=== PATIENT | male | born 1955 | race Caucasian/White ===

== ENCOUNTER 2016-07-17 01:53 | Emergency (ER) | payer OTHER ==
[~2016-07-17] VITALS: Ht 157.5 cm; Wt 62.6 kg
[2016-07-17] MEDS ORDERED: NF-SILD25T (02:01)
[2016-07-17] MEDS ORDERED: NS IV 1000 ML 1,000 ML IV ONE (02:04)
[2016-07-17 02:11] LABS: MEAN PLATELET VOLUME 9.2 FL (7.4-10.4); RED BLOOD COUNT 4.03 10^6/uL (4.35-5.85); RED CELL DISTRIBUTION WIDTH 12.4 % (10.0-14.5); WHITE BLOOD COUNT 16.1 10^3/uL (4.3-11.0)
[2016-07-17] MEDS ORDERED: CLINDAMYCIN 900 MG/50 ML IVPB 50 ML IV ONE (02:15)
[2016-07-17] MEDS ORDERED: TETANUS,DIPTH,PERTUSS P/F (BOOSTRIX) 0.5 ML VIAL IM ONE (02:15)
[2016-07-17 02:26] LABS: ALANINE AMINOTRANSFERASE 13 U/L (0-55); ALBUMIN 3.7 G/DL (3.2-4.5); ALCOHOL < 10 MG/DL (<10); ANION GAP 8 MMOL/L (5-14); ASPARTATE AMINO TRANSFERASE 15 U/L (5-34); BILIRUBIN,DIRECT 0.2 MG/DL (0.0-0.3); BILIRUBIN,INDIRECT 0.2 MG/DL; BILIRUBIN,TOTAL 0.4 MG/DL (0.1-1.0); BLOOD UREA NITROGEN 11 MG/DL (7-18); BUN/CREATININE RATIO 14; CALCIUM 7.8 MG/DL (8.5-10.1); CARBON DIOXIDE 23 MMOL/L (21-32); CHLORIDE 109 MMOL/L (98-107); CREATINE KINASE 144 U/L (30-200); CREATININE SERUM 0.78 MG/DL (0.60-1.30); GFR ESTIMATED > 60; GLUCOSE 128 MG/DL (70-105); POTASSIUM 3.8 MMOL/L (3.6-5.0); SODIUM 140 MMOL/L (135-145); TOTAL PROTEIN 5.7 G/DL (6.4-8.2)
[2016-07-17 03:03] LABS: BILIRUBIN,URINE NEGATIVE (NEGATIVE); KETONES,URINE 2+ (NEGATIVE); LEUKOCYTE ESTERASE ,URINE NEGATIVE (NEGATIVE); NITRITE,URINE NEGATIVE (NEGATIVE); PH,URINE 7 (5-9); PROTEIN,URINE NEGATIVE (NEGATIVE); UROBILINOGEN,URINE NORMAL (NORMAL)
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
[2016-07-17 03:18] LABS: SQUAMOUS EPITHELIAL CELL,UR RARE /HPF
[2016-07-17] MEDS ORDERED: LIDOCAINE/EPI 1%-1:100,000 (XYLOCAINE) 20ML ONE (03:35)
[2016-07-17] MEDS ORDERED: LIDOCAINE/EPI 1%-1:100,000 (XYLOCAINE) 20ML INJ ONE (03:45)
[2016-07-17 04:15] VITALS: BP 119/64
[2016-07-17] MEDS ORDERED: IOHEXOL 350 MG/ML 100 ML (OMNIPAQUE 350) VIAL IV ONE (04:15)
[2016-07-17] MEDS ORDERED: NS 100 ML (IVPB) BAG IV ONE (04:15)
[2016-07-17] MEDS ORDERED: TETRACAINE 0.5% OPHTH SOLN 4 ML BTL (SINGLE DOSE ONLY) OP ONE (04:30)
[2016-07-17 05:14] VITALS: BP 130/71
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
--- OUTSIDE RECORDS SUMMARY | 2016-08-09 11:36 | XMS REPORT ---
Author Author CAROLINE DUMONT Organization [employer] Address Unknown Phone Unavailable Care Team Providers Care Air Hammer Operator Name Role Phone CAROLINE DUMONT CP Unavailable Allergies, Adverse Reactions, Alerts Substance Reaction Event Type N.K.D.A. Info Not Available Non Drug Allergy Problems Problem Type Condition Code Onset Dates Condition Status Problem Proteinuria 791.0 Active Problem Hematuria, unspecified 599.70 Active Problem Unspecified site of sprain and strain 848.9 Active Problem Nondependent tobacco use disorder 305.1 Active Problem Rash and other nonspecific skin eruption 782.1 Active Problem Dizziness and giddiness 780.4 Active Problem Other malaise and fatigue 780.79 Active Problem Cervicalgia 723.1 Active Problem Screening for lipoid disorders V77.91 Active Medications No Known Medications Results No Known Results Summary Purpose [employer] Submission
== END 2016-07-17 05:16 | disposition short-term general hospital (02) ==
LOC: EDUNIT# 01:53 → ER 01:55
DX: S01.112A Laceration without foreign body of left eyelid and periocular area, initial encounter (principal); S01.01XA Laceration without foreign body of scalp, initial encounter; S02.19XA Other fracture of base of skull, initial encounter for closed fracture; H11.32 Conjunctival hemorrhage, left eye; M50.30 Other cervical disc degeneration, unspecified cervical region; Z23 Encounter for immunization; F17.210 Nicotine dependence, cigarettes, uncomplicated; Y04.0XXA Assault by unarmed brawl or fight, initial encounter; Y99.8 Other external cause status
CPT/HCPCS: 12011; 36415; 70450; 71010; 71260; 72125; 74177; 80048; 80076; 80306; 80320; 81000; 82550; 85027; 90471; 90715; 93041; 96361; 96365

== ENCOUNTER 2023-02-21 11:15 | Emergency (ER) | payer MEDICARE ==
[~2023-02-21] VITALS: Ht 167 cm; Wt 67.0 kg
[~2023-02-21 11:15] MED LIST: NF-SILD25T
[2023-02-21 12:39] LABS: BASOPHILS % (AUTO) 0 % (0-10); EOSINOPHILS % (AUTO) 1 % (0-10); HEMATOCRIT 26 % (40-54); LYMPHOCYTES # (AUTO) 0.8 10^3/uL (1.0-4.0); LYMPHOCYTES % (AUTO) 13 % (12-44); MEAN CORPUSCULAR HEMOGLOBIN 20 pg (25-34); MEAN CORPUSCULAR HGB CONC 28 g/dL (32-36); MEAN CORPUSCULAR VOLUME 74 fL (80-99); MONOCYTES # (AUTO) 0.6 10^3/uL (0.0-1.0); MONOCYTES % (AUTO) 9 % (0-12); NEUTROPHILS # (AUTO) 4.9 10^3/uL (1.8-7.8); NEUTROPHILS % (AUTO) 77 % (42-75); PLATELET COUNT 318 10^3/uL (130-400); WHITE BLOOD COUNT 6.4 10^3/uL (4.3-11.0)
--- NOTE | 2023-02-21 12:49 | ED General ---
General Chief Complaint: General Problems/Pain Stated Complaint: LOW HEMOGLOBIN | .6 Nursing Triage Note: PT REPORTS HE HAD SCREENING LABS DONE AT [facility] ET THEY REPORT HEMOGLOBIN WAS 6. THEY SENT HIM HERE FOR A BLOOD TRANSFUSION. ADMITS DIZZINESS FOR THE PAST COUPLE OF DAYS. DENIES OTHER C/O. Source of Information: Patient Exam Limitations: No Limitations (CARLOS LIRA) History of Present Illness Date Seen by Provider: Feb 21, 2023 Time Seen by Provider: 12:46 Initial Comments Patient is a 67-year-old male with a history of prostate cancer, COPD, dyslipidemia presents the ED for hemoglobin of 6. Patient states he had his 6- month checkup yesterday. Had lab work drawn. Patient Was found to be anemic. No history of anemia. Patient states he has had some mild dizziness over the past 2 or 3 days. Denies the room spinning. This appears to be intermittent. States he is walking and driving without any difficulties. Denies of any headache visual changes, unilateral muscle weakness or sensory changes, chest pain or shortness of breath. Patient is not on blood thinners. Denies excessive NSAID use. He has no abdominal pain or tenderness on palpation. No chest pain or shortness of breath. Patient is currently asymptomatic. Patient denies a history of GI bleed in the past. Patient received a blood transfusion. No complications after blood transfusion. Hemoglobin improved to 8.1 hematocrit 26. Pending iron levels. As patient is currently asymptomatic patient will be discharged with strict return precautions. (CARLOS LIRA) Allergies and Home Medications Allergies Coded Allergies: No Known Drug Allergies (Unverified , 07/17/16) Patient Home Medication List Home Medication List Reviewed: Yes (CARLOS LIRA) Sildenafil Citrate (Viagra) 25 Mg Tablet, (Reported) Entered as Reported by: LAURA LOONEY on 07/17/16 0201 Review of Systems Review of Systems Constitutional: No chills, No diaphoresis, No malaise, No weakness EENTM: No ear pain, No blurred vision, No double vision Respiratory: No cough, No dyspnea on exertion Cardiovascular: No chest pain Gastrointestinal: No abdominal pain, No diarrhea, No dysphagia, No nausea, No vomiting Genitourinary: No decreased output, No discharge Musculoskeletal: No back pain, No joint pain Skin: No change in color, No change in hair/nails (CARLOS LIRA) All Other Systems Reviewed Negative Unless Noted: Yes (CARLOS LIRA) Past Kssfryw-Oyzufn-Zdvlgc Hx Patient Social History Tobacco Use?: No Smoking Status: Former Smoker Substance use?: No Alcohol Use?: No (CARLOS LIRA) Immunizations Up To Date Second COVID19 Vaccination Charles: YES (CARLOS LIRA) Seasonal Allergies Seasonal Allergies: No (CARLOS LIRA) Past Medical History Surgery/Hospitalization HX: PROSTATE CA, JAW TRAUMA Reproductive Disorders: No Prostate (CARLOS LIRA) Physical Exam Vital Signs Vital Signs - First Documented 02/21/23 11:43 Temp 37.1 Pulse 80 Resp 18 B/P (MAP) 143/64 (90) Pulse Ox 96 O2 Delivery Room Air (LUISA NDIAYE MD) Vital Signs Capillary Refill : (CARLOS LIRA) Height, Weight, BMI Height: 5'2.00" Weight: 138lbs. oz. 62.008128gx; 24.00 BMI Method:Stated General Appearance: No Apparent Distress, WD/WN Eyes: Bilateral Eye Normal Inspection, Bilateral Eye PERRL, Bilateral Eye EOMI HEENT: PERRL/EOMI, TMs Normal, Normal ENT Inspection, Pharynx Normal Neck: Full Range of Motion, Normal Inspection, Non Tender, Supple Respiratory: Chest Non Tender, Lungs Clear, Normal Breath Sounds, No Accessory Muscle Use, No Respiratory Distress Cardiovascular: Regular Rate, Rhythm, No Edema, No Gallop, No JVD Gastrointestinal: Normal Bowel Sounds, No Organomegaly, No Pulsatile Mass Back: Normal Inspection, No CVA Tenderness Extremity: Normal Capillary Refill, Normal Inspection, Normal Range of Motion Neurologic/Psychiatric: Alert, Oriented x3, No Motor/Sensory Deficits, Normal Mood/Affect, director educational radio II-XII Norm as Tested (CARLOS LIRA) Progress/Results/Core Measures Suspected Sepsis SIRS Temperature: Pulse: 80 Respiratory Rate: 18 Laboratory Tests 02/21/23 12:20: White Blood Count 6.4 Blood Pressure 143 /64 Mean: 90 Laboratory Tests 02/21/23 12:20: Creatinine 0.84, INR Comment 1.0, Platelet Count 318, Total Bilirubin 0.3 (CARLOS LIRA) Results/Orders Lab Results Laboratory Tests Test 02/21/23 12:20 02/21/23 12:25 02/21/23 16:50 02/22/23 09:04 Range/Units White Blood Count 6.4 4.3-11.0 10^3/uL Red Blood Count 3.46 L 4.30-5.52 10^6/uL Hemoglobin 7.0 L 8.1 L 13.3-17.7 g/dL Hematocrit 26 L 28 L 40-54 % Mean Corpuscular Volume 74 L 80-99 fL Mean Corpuscular Hemoglobin 20 L 25-34 pg Mean Corpuscular Hemoglobin Concent 28 L 32-36 g/dL Red Cell Distribution Width 15.9 H 10.0-14.5 % Platelet Count 318 130-400 10^3/uL Mean Platelet Volume 9.0 9.0-12.2 fL Immature Granulocyte % (Auto) 0 % Neutrophils (%) (Auto) 77 H 42-75 % Lymphocytes (%) (Auto) 13 12-44 % Monocytes (%) (Auto) 9 0-12 % Eosinophils (%) (Auto) 1 0-10 % Basophils (%) (Auto) 0 0-10 % Neutrophils # (Auto) 4.9 1.8-7.8 10^3/uL Lymphocytes # (Auto) 0.8 L 1.0-4.0 10^3/uL Monocytes # (Auto) 0.6 0.0-1.0 10^3/uL Eosinophils # (Auto) 0.0 0.0-0.3 10^3/uL Basophils # (Auto) 0.0 0.0-0.1 10^3/uL Immature Granulocyte # (Auto) 0.0 0.0-0.1 10^3/uL Prothrombin Time 13.5 12.2-14.7 SEC INR Comment 1.0 0.8-1.4 Activated Partial Thromboplast Time 26 24-35 SEC Sodium Level 141 135-145 MMOL/L Potassium Level 4.4 3.6-5.0 MMOL/L Chloride Level 108 H 98-107 MMOL/L Carbon Dioxide Level 26 21-32 MMOL/L Anion Gap 7 5-14 MMOL/L Blood Urea Nitrogen 20 H 7-18 MG/DL Creatinine 0.84 0.60-1.30 MG/DL Estimat Glomerular Filtration Rate 94 BUN/Creatinine Ratio 24 Glucose Level 98 70-105 MG/DL Calcium Level 9.0 8.5-10.1 MG/DL Corrected Calcium 8.8 8.5-10.1 MG/DL Total Bilirubin 0.3 0.1-1.0 MG/DL Aspartate Amino Transf (AST/SGOT) 27 5-34 U/L Alanine Aminotransferase (ALT/SGPT) 32 0-55 U/L Alkaline Phosphatase 73 40-136 U/L Total Protein 7.6 6.4-8.2 GM/DL Albumin 4.3 3.2-4.5 GM/DL Iron Level 20 L 37-167 ug/dL Total Iron Binding Capacity 422 H 237-330 ug/dL Unsaturated Iron Binding Capacity 402 25-500 ug/dL Transferrin % Saturation 5 L 17-57 % Ferritin 4.9 L 32.0-356.0 ng/mL Vitamin B12 Level 506 737-1133 pg/mL Lab Scanned Report Transfusion Reaction Form [id number] (LUISA NDIAYE MD) My Orders Orders - LUISA NDIAYE MD Cbc And Automated Diff (02/21/23 11:51) Comprehensive Metabolic Panel (02/21/23 11:51) Protime With Inr (02/21/23 11:51) Partial Thromboplastin Time (02/21/23 11:51) Ed Iv/Invasive Line Start (02/21/23 11:51) (LUISA NDIAYE MD) Vital Signs/I&O 02/21/23 02/21/23 02/21/23 02/21/23 11:43 14:08 14:13 14:29 Temp 37.1 36.8 36.7 Pulse 80 71 69 69 Resp 18 18 18 18 B/P (MAP) 143/64 (90) 118/56 123/63 132/70 Pulse Ox 96 97 97 O2 Delivery Room Air Room Air Room Air Room Air 02/21/23 02/21/23 16:46 17:07 Temp 36.5 36.5 Pulse 80 68 Resp 18 18 B/P (MAP) 113/82 113/82 Pulse Ox 97 O2 Delivery Room Air Room Air 02/22/23 00:00 Intake Total 270 ml Balance 270 ml (LUISA NDIAYE MD) Vital Signs/I&O Capillary Refill : (CARLOS LIRA) Blood Pressure Mean: 90 Departure Communication (PCP) Patient was sent to the ED for a blood transfusion. Patient Had abnormal lab work. Hemoglobin was found to be around 6. No history of anemia. Differential diagnosis microcytic versus macrocytic anemia, GI bleed. Patient is not on blood thinner use. Denies excessive NSAID use. No specific symptoms but has had some intermittent dizziness periodically. Denies headache or any focal neural deficits. Patient vital signs stable. Hemoccult test was negative. Generalized lab work was ordered with coags type and screen. Hemoglobin 7, hematocrit 26. Concern for iron deficiency anemia. Added iron levels as well as vitamin B12. Chemistry was grossly unremarkable. Patient received 1 unit blood transfusion. Patient was observed here in the ED. Patient had no evidence of any interactions. Patient is medically stable at this time. At this time recommend follow-up with your PCP in 2 days for today's lab work and reassess of your symptoms. Recommend recheck of your hemoglobin and hematocrit. (CARLOS LIRA) Impression Primary Impression: Anemia Disposition: HOME, SELF-CARE Condition: Stable Departure-Patient Inst. Decision time for Depature: 14:54 (CAROLS LIRA) Referrals: EFRAÍN PALACIO APRN (PCP/Family) Primary Care Physician Patient Instructions: Anemia caused by low iron Add. Discharge Instructions: Need to follow-up with your primary the next 2 days for recheck of your hemoglobin. If any worsening symptoms such as weakness fatigue to return back to ED. Your Hemoccult test was negative. Does not appear to have an active GI bleed. All discharge instructions reviewed with patient and/or family. Voiced understanding. ATTENDING PHYSICIAN NOTE: I was physically present as attending physician in the emergency department during the care of this patient, but I was not directly involved in the decision making or delivery of care for this patient. (LUISA NDIAYE MD) CARLOS LIRA Feb 21, 2023 12:49 LUISA NDIAYE MD Feb 22, 2023 17:02
[2023-02-21 12:51] LABS: PROTHROMBIN TIME PATIENT 13.5 SEC (12.2-14.7)
[2023-02-21 12:58] LABS: ALBUMIN 4.3 GM/DL (3.2-4.5); BILIRUBIN,TOTAL 0.3 MG/DL (0.1-1.0); CREATININE SERUM 0.84 MG/DL (0.60-1.30); POTASSIUM 4.4 MMOL/L (3.6-5.0); TOTAL PROTEIN 7.6 GM/DL (6.4-8.2)
[2023-02-21] MEDS ORDERED: NS IV 500 ML 500 ML IV STA (13:36)
[2023-02-21 14:08] VITALS: BP 118/56
[2023-02-21 14:13] VITALS: BP 123/63
[2023-02-21 14:29] VITALS: BP 132/70
[2023-02-21 16:46] VITALS: BP 113/82
[2023-02-21 17:07] VITALS: BP 113/82
[2023-02-21 17:10] LABS: HEMOGLOBIN 8.1 g/dL (13.3-17.7)
== END 2023-02-21 16:53 | disposition home or self-care (01) ==
LOC: EDUNIT# 11:15 → ER 11:18
DX: D64.9 Anemia, unspecified (principal); Z87.891 Personal history of nicotine dependence
CPT/HCPCS: 36415; 80053; 82607; 82728; 83540; 83550; 85014; 85018; 85025; 85610; 85730; 86850; 86900; 86901; 86920

== ENCOUNTER 2023-03-03 10:32 | Outpatient (RCR) | payer MEDICARE ==
[2023-03-03 11:27] LABS: BASOPHILS % (AUTO) 1 % (0-10); EOSINOPHILS # (AUTO) 0.1 10^3/uL (0.0-0.3); EOSINOPHILS % (AUTO) 2 % (0-10); HEMATOCRIT 32 % (40-54); LYMPHOCYTES # (AUTO) 0.9 10^3/uL (1.0-4.0); LYMPHOCYTES % (AUTO) 15 % (12-44); MEAN CORPUSCULAR HEMOGLOBIN 22 pg (25-34); MEAN CORPUSCULAR HGB CONC 28 g/dL (32-36); MEAN CORPUSCULAR VOLUME 78 fL (80-99); MEAN PLATELET VOLUME 9.2 fL (9.0-12.2); MONOCYTES # (AUTO) 0.6 10^3/uL (0.0-1.0); MONOCYTES % (AUTO) 9 % (0-12); NEUTROPHILS # (AUTO) 4.4 10^3/uL (1.8-7.8); NEUTROPHILS % (AUTO) 73 % (42-75); PLATELET COUNT 336 10^3/uL (130-400)
[2023-03-17] MEDS ORDERED: FLUT1BLS15 IH ×2 (12:48)
[2023-03-17] MEDS ORDERED: IPR14IN IH ×2 (12:48)
[2023-03-17] MEDS ORDERED: ATOR20TA66 PO ×2 (12:48)
[2023-03-17] MEDS ORDERED: ACET-2267 PO ×2 (12:48)
[2023-03-17] MEDS ORDERED: ASPI-1238 PO ×2 (12:48)
[2023-03-17] MEDS ORDERED: TMSL.4C PO ×2 (12:48)
[2023-03-17] MEDS ORDERED: TR1O15 TP ×2 (12:48)
[2023-03-17] MEDS ORDERED: RT-ALBUINH INH ×2 (12:48)
[2023-03-17] MEDS ORDERED: MV-M1CAP26 PO ×2 (12:48)
[2023-03-17] MEDS ORDERED: POTA99CA PO ×2 (12:48)
[2023-03-17] MEDS ORDERED: MELA5CAP PO ×2 (12:48)
[2023-03-17] MEDS ORDERED: ROPI5TAB23 PO ×2 (12:48)
== END 2023-03-16 | disposition home or self-care (01) ==
LOC: ONC 10:32
PROVIDERS: ATTEND Internal Medicine Hematology & Oncology
DX: D50.9 Iron deficiency anemia, unspecified (principal)
CPT/HCPCS: 85025

== ENCOUNTER 2023-03-15 05:55 | Outpatient (CLI) | payer MEDICARE ==
[~2023-03-15] VITALS: Ht 167.6 cm; Wt 66.7 kg
[2023-03-17] MEDS ORDERED: TMSL.4C PO (12:48)
[2023-03-17] MEDS ORDERED: ATOR20TA66 PO (12:48)
[2023-03-17] MEDS ORDERED: IPR14IN IH (12:48)
[2023-03-17] MEDS ORDERED: ROPI5TAB23 PO (12:48)
[2023-03-17] MEDS ORDERED: ACET-2267 PO (12:48)
[2023-03-17] MEDS ORDERED: MV-M1CAP26 PO (12:48)
[2023-03-17] MEDS ORDERED: POTA99CA PO (12:48)
[2023-03-17] MEDS ORDERED: RT-ALBUINH INH (12:48)
[2023-03-17] MEDS ORDERED: FLUT1BLS15 IH (12:48)
[2023-03-17] MEDS ORDERED: ASPI-1238 PO (12:48)
[2023-03-17] MEDS ORDERED: MELA5CAP PO (12:48)
[2023-03-17] MEDS ORDERED: TR1O15 TP (12:48)
== END 2023-03-17 12:56 | disposition home or self-care (01) ==
LOC: PREOP 05:55
PROVIDERS: ATTEND Surgery
DX: Z01.818 Encounter for other preprocedural examination (principal)

== ENCOUNTER 2023-03-20 07:34 | Day surgery (SDC) | payer MEDICARE ==
[~2023-03-20] VITALS: Ht 167.6 cm; Wt 66.7 kg
[~2023-03-20 07:34] MED LIST changes: +ACET-2267 PO; +ASPI-1238 PO; +ATOR20TA66 PO; +FLUT1BLS15 IH; +IPR14IN IH; +MELA5CAP PO; +MV-M1CAP26 PO; +POTA99CA PO; +ROPI5TAB23 PO; +RT-ALBUINH INH; +TMSL.4C PO; +TR1O15 TP
[2023-03-20] MEDS ORDERED: LACTATED RINGERS 1,000 ML 1,000 ML IV STA (07:37)
[2023-03-20] MEDS ORDERED: HURRICAINE EXT TUBE (BENZOCAINE) XX PRN (07:45)
[2023-03-20 08:01] VITALS: BP 150/73
--- NOTE | 2023-03-20 08:39 | Progress Note-Pre Operative ---
Pre-Operative Progress Note Date of Available H&P: Mar 14, 2023 Date H&P Reviewed: Mar 20, 2023 Time H&P Reviewed: 08:31 History & Physical: H&P Reviewed, Patient Examed, No changes noted Pre-Operative Diagnosis: Anemia, Screening ANKIT PABON DO Mar 20, 2023 08:39
[2023-03-20 09:10] VITALS: BP 88/53
--- NOTE | 2023-03-20 09:10 | Anesthesia-General Post-Op ---
MAC Patient Condition Mental Status/LOC: Same as Preop Cardiovascular: Satisfactory Nausea/Vomiting: Absent Respiratory: Satisfactory Pain: Controlled Complications: Absent Post Op Complications Complications None Follow Up Care/Instructions Patient Instructions None needed. Anesthesiology Discharge Order Discharge Order Patient is doing well, no complaints, stable vital signs, no apparent adverse anesthesia problems. No complications reported per nursing. CORY HARRINGTON CRNA Mar 20, 2023 09:10
[2023-03-20 09:15] VITALS: BP 96/60
--- NOTE | 2023-03-20 09:15 | Progress Note-Post Operative ---
Post-Operative Progess Note Surgeon (s)/Pile Driving Technician (s) Surgeon ANKIT PABON DO Pile Driving Technician: Jarett Zapata, MSIII Pre-Operative Diagnosis Anemia, Screening Post-Operative Diagnosis Gastritis Hiatal Hernia Gastric Ulcer Diverticula int hemorrhoids Procedure & Operative Findings Date of Procedure 03/20/23 Procedure Performed/Findings EGD with biopsy Colonoscopy PROCEDURE NOTE: After informed consent was obtained, the patient was brought to the endoscopy suite, placed in bed in left lateral decubitus position. He was administered IV sedation by the TOOL GRINDER who then monitored vitals the entire time, heart rate, blood pressure and pulse ox and the scope was inserted down the mouth through the esophagus into the stomach. On the way down, noted some mild esophagitis, took a picture, pushed into the stomach, pushed past the antrum into the duodenum. Duodenum looked good. Pulled back, noted some mild gastritis and did a biopsy of the antrum. I then retroflexed the scope, saw very small grade II AFS hiatal hernia, took a picture of this and noted what looked like an ulcer in the cardia of the stomach. I did a biopsy of this area and then pulled the scope into the GE junction, took another picture of the hiatal hernia and then did a biopsy of the GE junction. Pushed the scope back into the stomach, suctioned all the air out of the stomach. At this point pulled the scope up the esophagus and out the mouth. Switched camera, switched gloves, went down below and started the colonoscopy. Pushed all the way to about 130 cm and pushed into the cecum, took a picture of appendiceal orifice and noted the ileocecal valve. Then slowly withdrew the scope insufflating to look circumferentially at the baker starting in the cecum, up the ascending colon to the hepatic flexure, then down the transverse colon to the splenic flexure, into the descending colon down in the sigmoid and then into the rectal vault and retroflexed the scope. Took picture of the internal hemorrhoids. I also noted some diverticula on the way and took a picture of them. The patient tolerated the procedure and he recovered in the endoscopy suite. Recommended for repeat colonoscopy in 10 years Anesthesia Type IV sedation by TOOL GRINDER Estimated Blood Loss Estimated blood loss (mL): scant Specimens/Packing Specimens Removed antral bx cardia bx GE jxn bx ANKIT PABON DO Mar 20, 2023 09:15
--- NOTE | 2023-03-20 09:16 | Endoscopy Discharge Instruct ---
Endo Procedure/Findings Findings 1.: Gastritis 2.: Gastric Ulcer 3.: Hiatal Hernia 4.: Diverticulosis, Internal Hemorrhoids Discharge Instructions - Activity: You might feel a little sleepy until tomorrow. This is due to the medicine you received to relax you. Until tomorrow, you should: NOT drive a car, operate machinery or power tools. NOT drink any alcoholic beverages. NOT make any important decisions or sign importortant papers. Do not return to work until tomorrow, unless otherwise instructed. Resume previous activities tomorrow. Diet: Start by taking liquids. If you tolerate liquids, advance to solid food. 1.: EGD in 3 years 2.: Colonscopy in 10 years Notify Physician - If you experience excessive bleeding, unusual abdominal pain, fever, or chest pain, contact your doctor immediately. Follow-Up: Other Follow up in my office in one week ANKIT PABON DO Mar 20, 2023 09:16
[2023-03-20 09:20] VITALS: BP 150/73
[2023-03-20 09:50] VITALS: BP 150/73
== END 2023-03-20 09:20 | disposition home or self-care (01) ==
LOC: ENDO 07:34
PROVIDERS: ATTEND Surgery
DX: Z12.11 Encounter for screening for malignant neoplasm of colon (principal); K29.50 Unspecified chronic gastritis without bleeding; K44.9 Diaphragmatic hernia without obstruction or gangrene; K25.9 Gastric ulcer, unspecified as acute or chronic, without hemorrhage or perforation; K21.00 Gastro-esophageal reflux disease with esophagitis, without bleeding; K31.89 Other diseases of stomach and duodenum; K57.30 Diverticulosis of large intestine without perforation or abscess without bleeding; K64.8 Other hemorrhoids; F17.220 Nicotine dependence, chewing tobacco, uncomplicated; D64.9 Anemia, unspecified
CPT/HCPCS: 43239; G0121